=== PATIENT | male | born 1995 | race Caucasian/White ===

== ENCOUNTER 2017-03-17 09:38 | Emergency (ER) | payer OTHER ==
[2017-03-17 09:45] VITALS: BP 150/89
--- NOTE | 2017-03-17 10:24 | EDM.PDOC ---
[id number] 4d water pipe hit in face Time Seen by Provider: 03/17/17 10:13 Source of Information: Reports: Patient History Limitations: Reports: No Limitations - History of Present Illness INITIAL COMMENTS - FREE TEXT/NARRATIVE: Was working on a hose and testing pressure when the hose came back and hit him in the mouth and broke tooth. No loss of consciousness but witness did state that he was dazed for a couple of minutes. He denies pain other than to mouth and lips. No bleeding at this time. Tooth on the right top is broke off and painful. Onset: Today, Sudden Location: Reports: Face Quality: Reports: Throbbing Severity: Mild Oral/Mouth Pain Score (Numeric/FACES): 5 - Related Data Allergies Allergy/AdvReac Type Severity Reaction Status Date / Time No Known Allergies Allergy Verified 03/17/17 09:41 Home Meds: Home Meds . [No Known Home Meds] 03/17/17 [History] Past Medical History - Past Health History Medical/Surgical History: Denies Medical/Surgical History Social & Family History - Tobacco Use Smoking Status *Q: Never Smoker - Recreational Drug Use Recreational Drug Use: No ED ROS GENERAL - Review of Systems Review Of Systems: See Below Constitutional: Reports: No Symptoms HEENT: Reports: Dental Pain, Other (see HPI) Respiratory: Reports: No Symptoms Cardiovascular: Reports: No Symptoms GI/Abdominal: Reports: No Symptoms Musculoskeletal: Reports: No Symptoms Skin: Reports: Wound (upper lip) Neurological: Reports: No Symptoms ED EXAM, GENERAL - Physical Exam Exam: See Below Exam Limited By: No Limitations General Appearance: Alert, WD/WN, Mild Distress Eye Exam: Bilateral Eye: PERRL Ears: Normal External Exam, Normal Canal Nose: Normal Inspection, No Blood Throat/Mouth: Other (upper tooth #10 is broke off. No bleeding from the tooth that remains. Some bleeding from the upper lip in the same area. Tender to the maxilla with palpation. No movment noted. NO other teeth are loose.) Head: Atraumatic Neck: Normal Inspection, Supple, Non-Tender, Full Range of Motion Respiratory/Chest: No Respiratory Distress, Lungs Clear, Normal Breath Sounds Cardiovascular: Regular Rate, Rhythm GI/Abdominal: Normal Bowel Sounds, Soft Back Exam: Normal Inspection Extremities: Normal Inspection, Normal Range of Motion, Non-Tender Neurological: Alert, Oriented Skin Exam: Warm, Dry Course - Vital Signs Last Recorded V/S: Last Vital Signs Temp 98.3 F 03/17/17 09:42 Pulse 78 03/17/17 09:42 Resp 20 03/17/17 09:42 BP 150/89 H 03/17/17 09:42 Pulse Ox 98 03/17/17 09:42 Departure - Departure Time of Disposition: 10:22 Disposition: Home, Self-Care 01 Condition: good Clinical Impression: Broken tooth due to trauma without complication Qualifiers: Encounter type: initial encounter Fracture type: open Qualified Code(s): S02.5XXB - Fracture of tooth (traumatic), initial encounter for open fracture - Discharge Information Referrals: PCP,None [Primary Care Provider] - Forms: ED Department Discharge Additional Instructions: Appt with Dr. Mata at 11:15 to evaluate the tooth. Tylenol or advil as needed for discomfort Recheck if any further concerns - Problem List & Annotations (1) Broken tooth due to trauma without complication SNOMED Code(s): 924504194 Code(s): S02.5XXA - FRACTURE OF TOOTH (TRAUMATIC), INIT FOR CLOS FX Status : Acute Priority: High Qualifiers: Encounter type: initial encounter Fracture type: open Qualified Code(s): S02.5XXB - Fracture of tooth (traumatic), initial encounter for open fracture - Problem List Review Problem List Initiated/Reviewed/Updated: Yes
== END 2017-03-17 10:30 | disposition home or self-care (01) ==
LOC: CC.ED 09:38
DX: S02.5XXB Fracture of tooth (traumatic), initial encounter for open fracture (principal); W22.8XXA Striking against or struck by other objects, initial encounter
CPT/HCPCS: 70150; 99283